=== PATIENT | male | born 1935 | race Caucasian/White ===

== ENCOUNTER → 2016-10-18 | Outpatient (CLI) | payer OTHER ==
[2015-09-10 00:41] VITALS: BP 129/75
--- NOTE | 2016-10-18 15:56 | RAD ---
HISTORY: Left hip pain. 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 Findings: The bony pelvis is intact. There are bilateral hip arthroplasties. No evidence of fracture, dislocat ion or prosthetic loosening is seen involving the left hip. IMPRESSION: As above. Reported By:
--- NOTE | 2016-10-18 16:03 | RAD ---
HISTORY: Pain, status post knee arthroplasty Study: Three-view left knee with weight-bearing Comparison: May 03, 2016 Findings: There is a medial hemiarthroplasty of the left knee with femoral and tibial components. The prosthet ic devices appear in satisfactory position without fracture, dislocation or prosthetic loosening. Th ere is soft tissue swelling present in the region of the anterior knee and a suprapatellar joint eff usion may be present. IMPRESSION: Anterior knee Soft tissue swelling. A suprapatellar joint effusion may be present also. Stable appearing medial hemiarthroplasty of the left knee without fracture, dislocation or prostheti c loosening. Reported By:
== END ==
LOC: RAD 13:27
PROVIDERS: ATTEND Student in an Organized Health Care Education/Training Program
DX: M25.552 Pain in left hip (principal); M25.562 Pain in left knee; M79.89 Other specified soft tissue disorders
CPT/HCPCS: 73501; 73560

== ENCOUNTER → 2017-03-10 | Outpatient (CLI) | payer OTHER ==
[2015-09-10 00:41] VITALS: BP 129/75
--- NOTE | 2017-03-10 08:45 | RAD ---
HISTORY: Left knee pain Study: left knee AP and lateral Comparison: October 18, 2016 Findings: The patient is status post medial hemiarthroplasty. Position and alignment is anatomic. There is no e vidence for acute fracture or loosening. There is a small joint effusion present. There is some calci fication in the medial collateral ligament. IMPRESSION: Status post medial hemiarthroplasty in good position. Small joint effusion Reported By:
== END | disposition home or self-care (01) | DRG 556 ==
LOC: RAD 08:17
PROVIDERS: ATTEND Nurse Practitioner Family
DX: M25.562 Pain in left knee (principal); M25.48 Effusion, other site
CPT/HCPCS: 73560